=== PATIENT | male | born 1980 | race Caucasian/White ===

== ENCOUNTER 2017-08-03 17:01 | Emergency (ER) | payer BC ==
[~2017-08-03 17:01] MED LIST: CLINDAMYCIN HC300 MG PO; MOBIC7.5 MG PO; MOTRIN600 MG PO; MULTIPLE VITAM1 EAC1 PO; NAPROXEN500 MG PO; NORCO 5/3251 TABLET PO; OXYCODONE HCL5 MG PO; PEN-VEE K,VEET500 MG PO; PERCOCET 5/31 TABLET PO; SKELAXIN800 MG PO; ULTRAM50 MG PO; VALIUM5 MG PO
== END 2017-08-03 18:05 | disposition left against medical advice (07) ==
LOC: EME 17:01
DX: M25.512 Pain in left shoulder (principal); Z53.21 Procedure and treatment not carried out due to patient leaving prior to being seen by health care provider
CPT/HCPCS: 80048; 84484; 85027

== ENCOUNTER 2017-08-05 00:12 | Emergency (ER) | payer OTHER ==
[~2017-08-05] VITALS: Ht 193 cm; Wt 135.4 kg
[2017-08-05 01:29] VITALS: BP 148/91
== END 2017-08-05 01:29 | disposition home or self-care (01) ==
LOC: EXP 00:12 → EME 00:12 → EXP 01:29
DX: S40.012A Contusion of left shoulder, initial encounter (principal); W18.30XA Fall on same level, unspecified, initial encounter; G89.18 Other acute postprocedural pain; Z88.0 Allergy status to penicillin
CPT/HCPCS: 73030; 99281; 99283